=== PATIENT | female | born 1985 ===

== ENCOUNTER 2018-04-29 04:13 | Inpatient (IN) ==
[2018-04-29] MEDS ORDERED: PIPERACILLIN/TAZOBACTAM 3,375 MG in SODIUM CHLORIDE 0.9% 100 ML IV STA (05:10)
[2018-04-29] MEDS ORDERED: metroNIDAZOLE INJ 500 MG in PREMIX 1 EACH IV STA (05:10)
[2018-04-29] MEDS ORDERED: SODIUM CHLORIDE 0.9% 1,000 ML IV STA (05:10)
[2018-04-29] MEDS ORDERED: MORPHINE 4 MG/1 ML VIAL IV STA (05:12)
[2018-04-29] MEDS ORDERED: ONDANSETRON 4 MG/2 ML VIAL IV STA (05:12)
[2018-04-29 06:07] LABS: Alanine Aminotransferase 24 U/L (13-56); Albumin 1.6 G/DL (3.4-5.0); Alkaline Phosphatase 111 U/L (45-117); Aspartate Amino Transferase 26 U/L (0-37); Bilirubin,Total < 0.39 MG/DL (0.2-1.0); Blood Urea Nitrogen 5 MG/DL (7-18); Calcium 6.8 MG/DL (8.5-10.1); Glucose 98 MG/DL (74-106); Osmolality,Calculated 277.3 MOS/KG (273-304); Potassium 3.2 MMOL/L (3.5-5.1); Sodium 141 MMOL/L (136-145); Total Protein 5.4 G/DL (6.4-8.3)
[2018-04-29 06:13] LABS: Basophils % 0.2 % (0.0-0.8); Eosinophils # 0.1 10*3/uL (0.0-0.87); Eosinophils % 0.4 % (0.00-10.9); Hematocrit 28.9 VOL% (35.7-47.0); Hemoglobin 9.2 GM/DL (12.0-16.0); Immature Granulocytes % 0.8 %; Immature Granulocytes Absolute 0.12 #; Lymphocytes # 2.3 10*3/uL (1.4-4.0); Lymphocytes % 14.6 % (21.3-54.2); Mean Corpuscular HGB Conc 31.8 GM/DL (32-36); Mean Corpuscular Hemoglobin 27 PG (27-34); Mean Corpuscular Volume 84.8 FL (87-102); Mean Platelet Volume 8.3 FL (9.6-12.0); Monocytes # 1.3 10*3/uL (0.11-0.8); Monocytes % 8.6 % (1.7-12.7); Neutrophils # 11.6 10*3/uL (1.4-7.4); Neutrophils % 75.4 % (38.7-73.9); Platelet Count 484 T/CUMM (130-400); Red Blood Count 3.41 MC/CUMM (3.8-5.5); Red Cell Distribution Width 12.3 % (9.3-17.3); White Blood Count 15.4 T/CUMM (4-12)
[2018-04-29 06:21] LABS: Apearance,Urine Slightly Hazy (Clear); Bacteria,Urine Few /HPF (Few); Bilirubin,Urine Negative (Negative); Blood, Urine Negative (Negative); Glucose,Urine (UA) Negative (Negative); Ketones,Urine Negative (Negative); Nitrite,Urine Negative (Negative); Protein,Urine Negative; RBC,Urine 3 /HPF (0-4); Squamous Epithelial Cell,Urine Occasional /HPF (0-10); Urine Color Yellow (Yellow); Urine Specific Gravity 1.005 (1.001-1.035); Urine Urobilinogen < 2.0 EU/DL (0.2-1.0); WBC,Urine 8 /HPF (0-6)
[2018-04-29] MEDS: HYDROmorphone 2 MG/1 ML VIAL IV PRN ×3 (06:34→22:23)
[2018-04-29] MEDS: DEXTROSE 5% LACTATED RINGERS 1,000 ML IV SCH ×2 (06:38→16:53)
[2018-04-29] MEDS: ACETAMINOPHEN 500 MG TABLET PO PRN ×2 (08:12→16:57)
[2018-04-29] MEDS: PANTOPRAZOLE 40 MG VIAL IV SCH (09:28)
[2018-04-29] MEDS ORDERED: MIDAZOLAM 2 MG/2 ML VIAL IV ONE (10:49)
[2018-04-29] MEDS ORDERED: DIAZEPAM 5 MG TABLET PO ONE (10:49)
[2018-04-29] MEDS ORDERED: fentaNYL 100 MCG/2 ML VIAL IV ONE (10:49)
[2018-04-29 11:24] LABS: INR 1.1; Partial Thromboplastin Time 29.6 SECS (0-40)
[2018-04-29] MEDS: POTASSIUM CHLORIDE RIDER 10 MEQ in PREMIX 1 EACH IV PRN ×4 (11:58→17:14)
[2018-04-29] MEDS: metroNIDAZOLE INJ 500 MG in PREMIX 1 EACH IV SCH ×2 (13:20→22:32)
[2018-04-29] MEDS ORDERED: HYDROmorphone 2 MG/1 ML VIAL ONE (13:28)
[2018-04-29] MEDS ORDERED: MIDAZOLAM 2 MG/2 ML VIAL ONE (13:54)
[2018-04-29] MEDS: PIPERACILLIN/TAZOBACTAM 3,375 MG in SODIUM CHLORIDE 0.9% 100 ML IV SCH (18:19)
[2018-04-29] MEDS: ONDANSETRON 4 MG/2 ML VIAL IV PRN (21:10)
[2018-04-29 21:27] LABS: Albumin 1.8 G/DL (3.4-5.0); Bilirubin,Total 0.5 MG/DL (0.2-1.0); Calcium 7.8 MG/DL (8.5-10.1); Osmolality,Calculated 272.7 MOS/KG (273-304); Potassium 3.9 MMOL/L (3.5-5.1); Total Protein 6.8 G/DL (6.4-8.3)
[2018-04-30] MEDS: PIPERACILLIN/TAZOBACTAM 3,375 MG in SODIUM CHLORIDE 0.9% 100 ML IV SCH ×3 (02:12→17:30)
[2018-04-30] MEDS: metroNIDAZOLE INJ 500 MG in PREMIX 1 EACH IV SCH ×3 (06:12→22:01)
[2018-04-30] MEDS: ONDANSETRON 4 MG/2 ML VIAL IV PRN (07:26)
[2018-04-30] MEDS: DOCUSATE SODIUM 100 MG CAPSULE PO SCH ×2 (10:21→22:01)
[2018-04-30] MEDS: PANTOPRAZOLE 40 MG VIAL IV SCH (13:37)
[2018-04-30] MEDS: IBUPROFEN 800 MG TABLET PO PRN (20:56)
[2018-05-01] MEDS: PIPERACILLIN/TAZOBACTAM 3,375 MG in SODIUM CHLORIDE 0.9% 100 ML IV SCH ×4 (01:45→22:12)
[2018-05-01] MEDS: metroNIDAZOLE INJ 500 MG in PREMIX 1 EACH IV SCH ×3 (05:41→21:09)
[2018-05-01] MEDS: ONDANSETRON 4 MG/2 ML VIAL IV PRN (05:56)
[2018-05-01] MEDS: PANTOPRAZOLE 40 MG VIAL IV SCH (09:00)
[2018-05-01] MEDS: DOCUSATE SODIUM 100 MG CAPSULE PO SCH ×2 (09:03→21:09)
[2018-05-01] MEDS: IBUPROFEN 800 MG TABLET PO PRN (09:03)
[2018-05-01 12:42] LABS: Basophils % 0.2 % (0.0-0.8); Eosinophils # 0.1 10*3/uL (0.0-0.87); Eosinophils % 1.1 % (0.00-10.9); Hematocrit 30.3 VOL% (35.7-47.0); Hemoglobin 9.5 GM/DL (12.0-16.0); Immature Granulocytes % 0.5 %; Immature Granulocytes Absolute 0.05 #; Lymphocytes # 1.2 10*3/uL (1.4-4.0); Lymphocytes % 12.1 % (21.3-54.2); Mean Corpuscular HGB Conc 31.4 GM/DL (32-36); Mean Corpuscular Hemoglobin 27 PG (27-34); Mean Corpuscular Volume 84.9 FL (87-102); Mean Platelet Volume 8.2 FL (9.6-12.0); Monocytes # 0.7 10*3/uL (0.11-0.8); Monocytes % 7.6 % (1.7-12.7); Neutrophils # 7.6 10*3/uL (1.4-7.4); Neutrophils % 78.5 % (38.7-73.9); Platelet Count 560 T/CUMM (130-400); Red Blood Count 3.57 MC/CUMM (3.8-5.5); Red Cell Distribution Width 12.7 % (9.3-17.3); White Blood Count 9.7 T/CUMM (4-12)
[2018-05-01 16:34] LABS: Lymphocytes 10 % (20-55); Segmented Neutrophils 86 % (50-85); Total Cells Counted 100
[2018-05-01 16:36] LABS: Anisocytosis Slight; Microcytosis Slight; Polychromasia Slight
[2018-05-01 16:38] LABS: Hypochromasia Slight; Platelet Estimate Increased
[2018-05-02] MEDS: metroNIDAZOLE INJ 500 MG in PREMIX 1 EACH IV SCH ×3 (04:36→20:36)
[2018-05-02] MEDS: IBUPROFEN 800 MG TABLET PO PRN ×2 (05:22→18:21)
[2018-05-02] MEDS: PIPERACILLIN/TAZOBACTAM 3,375 MG in SODIUM CHLORIDE 0.9% 100 ML IV SCH ×3 (05:22→21:31)
[2018-05-02] MEDS: PANTOPRAZOLE 40 MG VIAL IV SCH (09:20)
[2018-05-02] MEDS: DOCUSATE SODIUM 100 MG CAPSULE PO SCH ×2 (09:30→21:23)
[2018-05-03] MEDS: metroNIDAZOLE INJ 500 MG in PREMIX 1 EACH IV SCH ×3 (04:30→20:57)
[2018-05-03] MEDS: PIPERACILLIN/TAZOBACTAM 3,375 MG in SODIUM CHLORIDE 0.9% 100 ML IV SCH ×3 (05:26→21:59)
[2018-05-03] MEDS: IBUPROFEN 800 MG TABLET PO PRN ×2 (06:17→21:59)
[2018-05-03] MEDS: PANTOPRAZOLE 40 MG VIAL IV SCH (09:30)
[2018-05-03] MEDS: DOCUSATE SODIUM 100 MG CAPSULE PO SCH ×2 (09:35→21:59)
[2018-05-04] MEDS: ONDANSETRON 4 MG/2 ML VIAL IV PRN (02:04)
[2018-05-04] MEDS: metroNIDAZOLE INJ 500 MG in PREMIX 1 EACH IV SCH (04:48)
[2018-05-04] MEDS: PIPERACILLIN/TAZOBACTAM 3,375 MG in SODIUM CHLORIDE 0.9% 100 ML IV SCH (05:46)
[2018-05-04 08:15] VITALS: BP 117/65
[2018-05-04] MEDS: DOCUSATE SODIUM 100 MG CAPSULE PO SCH (09:15)
[2018-05-04] MEDS: PANTOPRAZOLE 40 MG VIAL IV SCH (09:17)
== END 2018-05-04 15:00 | disposition home or self-care (01) | DRG 759 ==
LOC: EDBD → EDUNIT# → N.ED 04:13 → N.EDINP 05:13 → N.OB 05:53
PROVIDERS: ADMIT Obstetrics & Gynecology; ATTEND Obstetrics & Gynecology